=== PATIENT | female | born 1990 | race Hispanic/Latino ===

== ENCOUNTER 2018-02-14 19:25 | Inpatient (IN) | payer BC ==
[~2018-02-14] VITALS: Ht 160 cm; Wt 96.6 kg
[2018-02-14] MEDS ORDERED: PREN1TAB89 PO (19:51)
[2018-02-14 20:04] LABS: APPEARANCE,URINE Cloudy (CLEAR); BILIRUBIN,URINE Small (NEGATIVE); COLOR,URINE Dark Yellow (YELLOW); GLUCOSE, URINE (UA) Negative (NEGATIVE); KETONES,URINE Negative (NEGATIVE); LEUKOCYTE ESTERASE ,URINE Trace (NEGATIVE); NITRATE,URINE Negative (NEGATIVE); OCCULT BLOOD,URINE Negative (NEGATIVE); PROTEIN,URINE Trace (NEGATIVE)
[2018-02-14 20:13] LABS: BACTERIA,URINE None Seen /HPF (None Seen); RBC,URINE None Seen /HPF (0-1); WBC,URINE 0-1 /HPF (0-1)
[2018-02-14 20:14] LABS: CALCIUM OXALATE CRYSTALS,UR Moderate /LPF (None Seen); MUCUS,URINE Many LPF (None Seen)
[2018-02-14 20:25] LABS: HEMATOCRIT 35.6 % (36-48); MEAN CORPUSCULAR HEMOGLOBIN 31.7 pg (27.0-33.0); MEAN CORPUSCULAR HGB CONC 35.4 g/dL (32.0-36.0); MEAN CORPUSCULAR VOLUME 89.6 fL (79-99); PLATELET COUNT (AUTO) 212 K/uL (130-400); RED BLOOD CELL COUNT(AUTO) 3.98 MIL/uL (4.00-5.50); RED CELL DISTRIBUTION WIDTH 13.4 % (11.0-15.5); WHITE BLOOD COUNT (AUTO) 7.5 K/uL (4.8-10.8)
[2018-02-14] MEDS: LACTATED RINGERS 1000ML 1,000 ML IV PRN (20:31)
[2018-02-15] MEDS ORDERED: OXYTOCIN 10 USP UNITS/ML 20 UNIT in LACTATED RINGERS 1000ML 1,000 ML IV SCH ×2 (00:01→04:00)
[2018-02-15] MEDS ORDERED: LACTATED RINGERS 1000ML 1,000 ML IV ONE (03:25)
[2018-02-15] MEDS ORDERED: OXYTOCIN 10 USP UNITS/ML ONE ×2 (03:26→14:31)
[2018-02-15] MEDS: LACTATED RINGERS 1000ML 1,000 ML IV PRN ×2 (04:19→15:27)
[2018-02-15] MEDS ORDERED: PROMETHAZINE HCL 25 MG/ML 1ML AMPULE IM SCH (09:15)
[2018-02-15] MEDS ORDERED: MEPERIDINE-PF 50 MG/ML SYG IVP SCH (09:15)
[2018-02-15] MEDS ORDERED: OXYTOCIN-LR 20 UNITS/1000 ML 1,000 ML IV SCH (11:00)
[2018-02-15] MEDS ORDERED: DIPH,PERTUSS(ACELL),TET VAC/PF 0.5 ML VIAL IM PRN (11:00)
[2018-02-15] MEDS ORDERED: LANOLIN 30GM OINTMENT TP PRN (11:00)
[2018-02-15] MEDS ORDERED: MEASLES/MUMPS/RUBELLA VACCINE, LIVE 0.5 ML/VIAL SQ PRN (11:00)
[2018-02-15] MEDS ORDERED: BENZOCAINE/LANOLIN/ALOE VERA 60 ML AEROSOL TP PRN (11:00)
[2018-02-15] MEDS ORDERED: ACETAMINOPHEN 325 MG TAB PO PRN (11:00)
[2018-02-15] MEDS ORDERED: WITCH HAZEL 1 PAD TP PRN (11:00)
[2018-02-15 13:31] VITALS: BP 108/53
[2018-02-15] MEDS: IBUPROFEN 600 MG TABLET PO PRN (15:30)
[2018-02-15 16:33] VITALS: BP 124/64
[2018-02-15 19:09] VITALS: BP 133/69
[2018-02-15] MEDS: DOCUSATE SODIUM 100 MG CAP PO SCH (21:30)
[2018-02-15 23:59] VITALS: BP 109/68
[2018-02-16] MEDS: IBUPROFEN 600 MG TABLET PO PRN (04:15)
[2018-02-16 04:16] VITALS: BP 105/65
[2018-02-16 05:14] LABS: HEMATOCRIT 31.2 % (36-48); MEAN CORPUSCULAR HEMOGLOBIN 31.5 pg (27.0-33.0); MEAN CORPUSCULAR HGB CONC 35.1 g/dL (32.0-36.0); MEAN CORPUSCULAR VOLUME 89.8 fL (79-99); PLATELET COUNT (AUTO) 180 K/uL (130-400); RED BLOOD CELL COUNT(AUTO) 3.48 MIL/uL (4.00-5.50); RED CELL DISTRIBUTION WIDTH 13.5 % (11.0-15.5); WHITE BLOOD COUNT (AUTO) 6.9 K/uL (4.8-10.8)
[2018-02-16 07:44] VITALS: BP 106/67
[2018-02-16 08:18] LABS: HEPATITIS Bs ANTIGEN SCREEN P Negative (Negative)
[2018-02-16] MEDS: DOCUSATE SODIUM 100 MG CAP PO SCH (08:59)
[2018-02-16 11:37] VITALS: BP 130/82
== END 2018-02-16 13:25 | disposition home or self-care (01) | DRG 775 ==
LOC: LDH 19:25 → WSH 02-15 12:36 → PREOBSVTOIN 02-21 19:24
PROVIDERS: ADMIT Obstetrics & Gynecology; ATTEND Obstetrics & Gynecology
PROC: 10E0XZZ Delivery of Products of Conception, External Approach (ICD-10-PCS; principal; 2018-02-15)
PROC: 10907ZC Drainage of Amniotic Fluid, Therapeutic from Products of Conception, Via Natural or Artificial Opening (ICD-10-PCS; 2018-02-15)
DX: O24.420 Gestational diabetes mellitus in childbirth, diet controlled (principal); O69.1XX0 Labor and delivery complicated by cord around neck, with compression, not applicable or unspecified; O66.0 Obstructed labor due to shoulder dystocia; Z3A.39 39 weeks gestation of pregnancy; Z37.0 Single live birth
CPT/HCPCS: 36415; 81001; 82947; 85027; 86592; 86850; 86900; 86901; 87340; 90715; A4351; J2175; J2550; J2590; J7120